=== PATIENT | male | born 1970 | race Caucasian/White ===

== ENCOUNTER 2017-06-03 13:07 | Inpatient (IN) | payer OTHER ==
[~2017-06-03] VITALS: Ht 185.4 cm; Wt 106.0 kg
[2017-06-03 13:39] LABS: HEMATOCRIT 44.9 % (38.0-50.0); MCH 29.9 PG (29.0-34.0); MCHC 34.1 G/DL (30.0-36.0); MCV 87.7 FL (86-99); MEAN PLAT.VOLUME 9.4 uM^3 (9.0-12.4); PLATELET COUNT 292 K/uL (156-360); RBC DIS.WIDTH-CV 12.3 % (11.8-14.6); RBC DIS.WIDTH-SD 39.7 % (39-53); RED BLOOD COUNT 5.12 M/uL (4.00-5.50); WHITE BLOOD COUNT 18.3 K/uL (4.1-10.2)
[2017-06-03 13:47] LABS: CHLORIDE 103 mEq/L (99-109); POTASSIUM 3.8 mEq/L (3.7-5.4); SODIUM 138 mEq/L (136-147)
[2017-06-03 13:49] LABS: GLUCOSE 89 mg/dL (70-99)
[2017-06-03 13:51] LABS: ANION GAP 11 MEQ/L (2-14); TOTAL BILIRUBIN 1.4 mg/dL (0.0-1.0)
[2017-06-03 13:53] LABS: ALKALINE PHOSPHATASE 60 IU/L (3-129); GFR ESTIMATE (CALCULATED) > 59 mL/min/
[2017-06-03 13:54] LABS: UREA NITROGEN (BUN) 17 mg/dL (9-23)
[2017-06-03 14:08] LABS: ADD MIUA? YES; BILIRUBIN NEGATIVE; BLOOD SMALL; COLOR YELLOW ((YELLOW)); GLUCOSE (STRIP) NEGATIVE; KETONES NEGATIVE; LEUKOCYTES NEGATIVE; NITRITE NEGATIVE; PROTEIN (STRIP) 30; SPECIFIC GRAVITY 1.029 (1.000-1.030); UROBILINOGEN 0.2 MG/DL (0.2-1.0)
[2017-06-03 14:15] LABS: BACTERIA NONE SEEN /HPF; EPITHELIAL CELLS RARE /HPF; MUCUS TRACE /LPF; RED BLOOD CELLS 0-5 /HPF (0-5); UCUL ADDED? NO; WHITE BLOOD CELLS 0-5 /HPF (0-5)
[2017-06-03 14:56] LABS: LIPASE 10 U/L (1.0-51.0)
[2017-06-03 15:27] LABS: TROP-I INTERPRETATION NEGATIVE; TROPONIN-I < 0.01 ng/mL (0.0-0.30)
[2017-06-03] MEDS ORDERED: WELLBUTRIN XL300 MG PO (19:04)
[2017-06-03] MEDS ORDERED: HYZAAR 50-121 TABLET PO (19:04)
[2017-06-03] MEDS ORDERED: ADVIL ALLERGY-1 EACH PO (19:04)
[2017-06-03] MEDS ORDERED: ATORVASTATIN CA10 MG PO (19:04)
[2017-06-03] MEDS ORDERED: PROTONIX40 MG PO (19:04)
[2017-06-03 22:12] VITALS: BP 135/63
[2017-06-03 23:58] VITALS: BP 123/63
[2017-06-04 05:53] LABS: EOSINOPHIL (%) 1.3 % (0-5); EOSINOPHIL COUNT 0.2 K/uL (0-0.3); HEMATOCRIT 38.5 % (38.0-50.0); IMMATURE GRANULOCYTE (%) 0.4 % (0.0-0.7); IMMATURE GRANULOCYTE COUNT 0.1 K/uL; INSTRUMENT ABS NEUTROPHIL CT 8.2 K/uL; LYMPHOCYTE COUNT 2.3 K/uL (1.0-2.8); MCH 29.8 PG (29.0-34.0); MCHC 33.2 G/DL (30.0-36.0); MCV 89.7 FL (86-99); MEAN PLAT.VOLUME 9.4 uM^3 (9.0-12.4); MONOCYTE (%) 10.9 % (3-12); MONOCYTE COUNT 1.3 K/uL (0-0.8); NEUTROPHIL (%) 68.1 % (45-76); NEUTROPHIL COUNT 8.2 K/uL (1.8-6.4); PLATELET COUNT 234 K/uL (156-360); RBC DIS.WIDTH-CV 12.4 % (11.8-14.6); RBC DIS.WIDTH-SD 40.7 % (39-53); RED BLOOD COUNT 4.29 M/uL (4.00-5.50)
[2017-06-04 06:15] LABS: ANION GAP 7 MEQ/L (2-14); CHLORIDE 103 MEQ/L (99-109); GFR ESTIMATE (CALCULATED) > 59 mL/min/; POTASSIUM 3.7 MEQ/L (3.7-5.4); SAMPLE HEMOLYSIS CHECK 0; SAMPLE ICTERIC CHECK 0; SAMPLE LIPEMIA CHECK 0; SODIUM 137 MEQ/L (136-147); UREA NITROGEN (BUN) 13 mg/dL (9-23)
[2017-06-04 06:16] LABS: GLUCOSE 114 mg/dL (70-99)
[2017-06-04 07:46] VITALS: BP 129/80
[2017-06-05 00:14] VITALS: BP 120/71
[2017-06-05 06:53] LABS: HEMATOCRIT 35.8 % (38.0-50.0); MCH 29.5 PG (29.0-34.0); MCV 89.5 FL (86-99); MEAN PLAT.VOLUME 9.8 uM^3 (9.0-12.4); PLATELET COUNT 247 K/uL (156-360); RBC DIS.WIDTH-CV 12.2 % (11.8-14.6); RBC DIS.WIDTH-SD 40.3 % (39-53); WHITE BLOOD COUNT 7.9 K/uL (4.1-10.2)
[2017-06-05 07:04] VITALS: BP 122/72
[2017-06-05 07:16] LABS: ANION GAP 7 MEQ/L (2-14); CHLORIDE 103 MEQ/L (99-109); GFR ESTIMATE (CALCULATED) > 59 mL/min/; GLUCOSE 115 mg/dL (70-99); POTASSIUM 3.7 MEQ/L (3.7-5.4); SAMPLE HEMOLYSIS CHECK 0; SAMPLE ICTERIC CHECK 0; SAMPLE LIPEMIA CHECK 0; SODIUM 139 MEQ/L (136-147); UREA NITROGEN (BUN) 9 mg/dL (9-23)
[2017-06-05 14:59] VITALS: BP 116/69
[2017-06-05 23:33] VITALS: BP 124/66
[2017-06-06 07:05] VITALS: BP 113/70
[2017-06-06] MEDS ORDERED: PERCOCET 5/31 TABLET PO (11:17)
[2017-06-06] MEDS ORDERED: METRONIDAZOLE500 MG PO (11:20)
[2017-06-06] MEDS ORDERED: CIPROFLOXACIN250 MG PO (11:20)
== END 2017-06-06 13:09 | disposition home or self-care (01) | DRG 392 ==
LOC: EME 13:07 → EDOF 20:34 → 5SOUTH 20:34 → ENRESERV 20:35 → 5SOUTH 22:00
PROVIDERS: Hospitalist; Physician Assistant Medical
DX: K57.20 Diverticulitis of large intestine with perforation and abscess without bleeding (principal); K56.7 Ileus, unspecified; R17 Unspecified jaundice; E86.0 Dehydration; I10 Essential (primary) hypertension; E78.5 Hyperlipidemia, unspecified; K21.9 Gastro-esophageal reflux disease without esophagitis; F41.9 Anxiety disorder, unspecified; E66.9 Obesity, unspecified; Z68.30 Body mass index [BMI] 30.0-30.9, adult; Z23 Encounter for immunization; Z87.891 Personal history of nicotine dependence; Z82.5 Family history of asthma and other chronic lower respiratory diseases; Z81.8 Family history of other mental and behavioral disorders
CPT/HCPCS: 70140; 74177; 74183; 80048; 80053; 81003; 83605; 83690; 84484; 85025; 85027; 87493; 90686; 93005; 99281; 99285; J0744; J1170; J1650; J2270; J2405; J7030; J7042; J7120; S0030